=== PATIENT | female | born 1975 | race Caucasian/White ===

== ENCOUNTER → 2018-01-08 | Outpatient (CLI) | payer MEDICAID | LOC: FIMAGING 13:09 | PROVIDERS: ATTEND Internal Medicine | DX: Z12.31 Encounter for screening mammogram for malignant neoplasm of breast (principal); Z80.3 Family history of malignant neoplasm of breast ==

== ENCOUNTER → 2018-01-15 | Outpatient (CLI) | payer MEDICAID | LOC: FIMAGING 14:07 | PROVIDERS: ATTEND Internal Medicine | DX: R92.8 Other abnormal and inconclusive findings on diagnostic imaging of breast (principal); Z80.3 Family history of malignant neoplasm of breast; Z80.41 Family history of malignant neoplasm of ovary ==

== ENCOUNTER 2018-06-12 15:43 | Emergency (ER) | payer SELFPAY ==
[2018-06-12] MEDS ORDERED: NS 1,000 ML IV ONE (16:16)
--- NOTE | 2018-06-12 16:18 | EDPHY ---
HPI/HX/ROS/PE/MDM Narrative: CHIEF COMPLAINT: Bilateral flank pain, diagnosed with UTI HPI: The patient is a 42 y/o female with a history fo bilateral renal angiolipoma complaining of worsening bilateral flank pain (worse on the right) after being diagnosed with a UTI. Starting 8 days ago she developed urinary frequency, burning, and bilateral flank pain. She saw her PCP 5 days ago who diagnosed the patient with a UTI and started her on Levaquin. The patient's symptoms started to improve 2 days ago. However, yesterday her symptoms worsened and she developed a fever of 101 degrees. She discussed her worsening symptoms with her PCP who advised that the patient present to the emergency department as the infection may have spread to her kidneys. For her symptoms she has taken Tylenol with mild relief. No headache, chest pain, shortness of breath, abdominal pain, bowel complaints, numbness, paresthesias. REVIEW OF SYSTEMS: Aside from elements discussed in the HPI, a comprehensive 10 system review of systems is otherwise negative. 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 ENT: Eyes are normal to inspection. ENT inspection normal. Neck: Normal inspection. Full range of motion. Respiratory: No respiratory distress. Breath sounds normal bilaterally. Cardiovascular: Regular rate and rhythm. Strong peripheral pulses. Normal cap refill. Abdomen: The abdomen is nontender to palpation. There are no peritoneal signs. There are normal bowel sounds. Back: Mild right-sided CVA tenderness to palpation. Normal to inspection. No spinal tenderness to palpation. Skin: Normal color. No rash. Warm and dry. Extremities: Normal appearance. Full range of motion. Neuro: Oriented x3. Normal motor function. Normal sensory function. ED Course: 1809: Reassessed patient and discussed laboratory findings. She is still having bilateral flank pain; abdominopelvic CT ordered. 1845: I spoke with , radiologist, regarding patient's abdominopelvic CT. The CT is negative except for chronic renal lipoma's and constipation. 1848: Reassessed patient and discussed imaging findings. I have advised her to follow up with her PCP. Return precautions provided; patient is comfortable with this plan. MDM: This patient presents with malaise and bilateral but primarily right flank pain in the setting of recent UTI, now on 5 days of levofloxacin. I see no signs of sepsis or pyelopnephritis - the patient has a normal WBC, is afebrile, has a normal UA and a CT that is negative for signs of pyelo. The etiology of her pain is unclear - there is no evidence of appendicitis, kidney stone or other acute abnormality on CT. Constipation is seen and may be playing a role. Patient and I discussed her workup in depth and she is comfortable being discharged with close outpatient follow-up. - Data Points Imaging: Discussed imaging studies w/ call center nurse Radiologist, I viewed and interpreted images myself Laboratory Results: Laboratory Results 06/12/18 16:37 06/12/18 16:37 06/12/18 06/12/18 06/12/18 17:30 16:37 16:37 WBC 5.27 10^3/uL 10^3/uL (3.80-9.50) RBC 4.56 10^6/uL 10^6/uL (4.18-5.33) Hgb 12.6 g/dL g/dL (12.6-16.3) Hct 38.9 % % (38.0-47.0) MCV 85.3 fL fL (81.5-99.8) MCH 27.6 pg L pg (27.9-34.1) MCHC 32.4 g/dL g/dL (32.4-36.7) RDW 14.6 % % (11.5-15.2) Plt Count 334 10^3/uL 10^3/uL (150-400) MPV 9.7 fL fL (8.7-11.7) Neut % (Auto) 53.5 % % (39.3-74.2) Lymph % (Auto) 27.5 % % (15.0-45.0) [place] % (Auto) 14.6 % H % (4.5-13.0) Eos % (Auto) 3.8 % % (0.6-7.6) Baso % (Auto) 0.4 % % (0.3-1.7) Nucleat RBC Rel Count 0.0 % % (0.0-0.2) Absolute Neuts (auto) 2.82 10^3/uL 10^3/uL (1.70-6.50) Absolute Lymphs (auto) 1.45 10^3/uL 10^3/uL (1.00-3.00) Absolute Monos (auto) 0.77 10^3/uL 10^3/uL (0.30-0.80) Absolute Eos (auto) 0.20 10^3/uL 10^3/uL (0.03-0.40) Absolute Basos (auto) 0.02 10^3/uL 10^3/uL (0.02-0.10) Absolute Nucleated RBC 0.00 10^3/uL 10^3/uL (0-0.01) Immature Gran % 0.2 % % (0.0-1.1) Immature Gran # 0.01 10^3/uL 10^3/uL (0.00-0.10) VBG Lactic Acid Sodium 140 mEq/L mEq/L (135-145) Potassium 4.2 mEq/L mEq/L (3.5-5.2) Chloride 106 mEq/L mEq/L (97-110) Carbon Dioxide 25 mEq/l mEq/l (22-31) Anion Gap 9 mEq/L mEq/L (6-14) BUN 11 mg/dL mg/dL (7-23) Creatinine 1.0 mg/dL mg/dL (0.6-1.0) Estimated GFR > 60 Glucose 94 mg/dL mg/dL (70-100) Calcium 8.9 mg/dL mg/dL (8.5-10.4) Urine Color PALE YELLOW Urine Appearance CLEAR Urine pH 8.0 H (5.0-7.5) Ur Specific [place] 1.006 (1.002-1.030) Urine Protein NEGATIVE (NEGATIVE) Urine Ketones NEGATIVE (NEGATIVE) Urine Blood NEGATIVE (NEGATIVE) Urine Nitrate NEGATIVE (NEGATIVE) Urine Bilirubin NEGATIVE (NEGATIVE) Urine Urobilinogen NEGATIVE EU EU (0.2-1.0) Ur Leukocyte Esterase NEGATIVE (NEGATIVE) Urine Glucose NEGATIVE (NEGATIVE) 06/12/18 16:37 WBC RBC Hgb Hct MCV MCH MCHC RDW Plt Count MPV Neut % (Auto) Lymph % (Auto) [place] % (Auto) Eos % (Auto) Baso % (Auto) Nucleat RBC Rel Count Absolute Neuts (auto) Absolute Lymphs (auto) Absolute Monos (auto) Absolute Eos (auto) Absolute Basos (auto) Absolute Nucleated RBC Immature Gran % Immature Gran # VBG Lactic Acid 1.3 mmol/L mmol/L (0.7-2.1) Sodium Potassium Chloride Carbon Dioxide Anion Gap BUN Creatinine Estimated GFR Glucose Calcium Urine Color Urine Appearance Urine pH Ur Specific [place] Urine Protein Urine Ketones Urine Blood Urine Nitrate Urine Bilirubin Urine Urobilinogen Ur Leukocyte Esterase Urine Glucose Medications Given: Discontinued Medications Sodium Chloride (Ns) 1,000 mls @ 0 mls/hr IV EDNOW ONE; Wide Open PRN Reason: Protocol Stop: 06/12/18 16:17 Last Admin: 06/12/18 16:35 Dose: 1,000 mls General Time Seen by Provider: 06/12/18 16:15 Initial Vital Signs: Initial Vital Signs Temperature (C) 37.1 C 06/12/18 15:47 Heart Rate 90 06/12/18 15:47 Respiratory Rate 18 06/12/18 15:47 Blood Pressure 117/85 H 06/12/18 15:47 O2 Sat (%) 99 06/12/18 15:47 O2 Delivery Mode Room Air Allergies/Adverse Reactions: celery [Celery] Allergy (Verified 06/12/18 15:45) Anaphylaxis cephalexin monohydrate [From Keflex] Allergy (Verified 06/12/18 15:45) Anaphylaxis erythromycin base [Erythromycin Base] Allergy (Verified 06/12/18 15:45) Anaphylaxis Sulfa (Sulfonamide Antibiotics) Allergy (Verified 06/12/18 15:45) Anaphylaxis gluten Allergy (Uncoded 08/06/15 00:35) Home Medications: Medication Instructions Recorded Levothyroxine [Synthroid 100 mcg 100 mcg PO DAILY06 #30 tab 06/25/14 (*)] Levaquin 06/12/18 Departure - Departure Disposition: Home, Routine, Self-Care Clinical Impression: Flank pain Constipation Qualifiers: Constipation type: unspecified constipation type Qualified Code(s): K59.00 - Constipation, unspecified Condition: Good Instructions: Constipation (ED), High Fiber Diet (ED), Flank Pain (ED) Additional Instructions: Follow-up with your primary doctor within 72 hours. Return to the Emergency Department for fever, chest pain, shortness of breath, increasing pain or other worsening of condition. Referrals: Ilene Borden MD [Primary Care Provider] - As per Instructions Report Scribed for: Yan Wright Report Scribed by: Allie Moreno Date of Report: 06/12/18 Time of Report: 16:17 Physician Review and Approval Statement: Portions of this note were transcribed by an ED scribe. I personally performed the history, physical exam, and medical decision making; and confirm the accuracy of the information in the transcribed note.
[2018-06-12 16:49] LABS: PLATELET COUNT 334 10^3/uL (150-400)
[2018-06-12] MEDS ORDERED: IOPAMIDOL (ISOVUE-300) 100 ML BTL ONE (18:20)
[2018-06-12 19:14] VITALS: BP 112/71
== END 2018-06-12 19:15 | disposition home or self-care (01) ==
DX: K59.00 Constipation, unspecified (principal); N39.0 Urinary tract infection, site not specified; N19 Unspecified kidney failure; D17.71 Benign lipomatous neoplasm of kidney
CPT/HCPCS: Q9967